=== PATIENT | male | born 1975 | race Caucasian/White ===

== ENCOUNTER 2020-05-01 12:44 | Emergency (ER) | payer OTHER ==
[~2020-05-01] VITALS: Ht 190.5 cm; Wt 117.5 kg
[~2020-05-01 12:44] MED LIST: COL100 PO; FLO4 PO; GLU500 PO; LAC PO; LEVAQUIN250 MG PO; LIPI10 PO; NOR10T PO; NORCO1 TA2 PO
[2020-05-01 13:15] VITALS: BP 161/92; Ht 190.5 cm; Wt 117.5 kg
== END 2020-05-01 14:04 | disposition home or self-care (01) ==
LOC: ED 12:44
DX: M54.32 Sciatica, left side (principal); Z87.442 Personal history of urinary calculi